=== PATIENT | female | born 1960 | race Caucasian/White ===

== ENCOUNTER → 2018-03-24 08:26 | Outpatient (CLI) | payer MEDICAID, SELFPAY ==
--- NOTE | 2018-03-24 08:32 | MM_ITS ---
MM Dig screening mamm BI w/CAD ORDERING PHYSICIAN : Kristofer Burleson PATIENT AGE: 57 years GENDER: Female COMPARISON: December 2014, September 2013 bilateral mammogram. Also Left mammogram study from 2014 also utilized INDICATION: ITS.REASON: SCREENING no hormones no new complaints noncontributory family history. TECHNIQUE: Standard CC and MLO images were obtained. R2 CAD reviewed. FINDINGS: Moderate density breast. Scattered moderate fibroglandular elements bilaterally. . No suspicious findings. No new mass or suspicious calcifications. RIGHT BREAST:. Scattered benign spherical calcifications. Mild asymmetric fibroglandular elements appear stable since 2014 with follow-up one year adequate. LEFT BREAST:No significant new findings. Areas of benign spherical calcifications at most notable central left breast again noted. IMPRESSION: Stable bilateral mammogram. Note uterus is significant concern Follow-up in one year recommended. BI-RADS Category: 2 Benign Finding(s) RECOMMENDED FOLLOW-UP: 1YR 1 YEAR FOLLOW-UP (A letter has been sent to the patient regarding results of the study.)
== END ==
PROVIDERS: Family Provider Internal Medicine; PCP Internal Medicine; Visit Provider Internal Medicine
DX: Z12.31 Encounter for screening mammogram for malignant neoplasm of breast (principal)
CPT/HCPCS: 77067

== ENCOUNTER → 2018-04-01 10:11 | Outpatient (REF) | payer MEDICAID, SELFPAY ==
[2018-04-01 10:20] LABS: Basophils % 0.5 % (0.1-2.0); Eosinophils # 0.2 K/mm3 (0.0-0.4); Eosinophils % 3.3 % (0.1-12.0); Hematocrit 42.3 % (37.0-47.0); Hemoglobin 14.4 g/dL (12.2-16.2); Lymphocytes % 31.5 K/mm3 (10-50); Mean Corpuscular HGB Conc 34.1 g/dL (31.8-35.4); Mean Corpuscular Hemoglobin 29.3 pg (27.0-31.2); Mean Corpuscular Volume 85.8 fl (81-99); Mean Platelet Volume 7.1 fl (7.4-10.4); Monocytes # 0.5 K/mm3 (0.1-1.0); Monocytes % 7.6 % (1.7-9.3); Neutrophils # 3.6 K/mm3 (1.8-7.8); Platelet Count 272 K/mm3 (142-424); Red Blood Count 4.94 M/mm3 (4.20-5.40); Red Cell Distribution Width 13.5 % (11.5-17.5); White Blood Count 6.4 K/mm3 (4.8-10.8)
[2018-04-01 10:33] LABS: Anion Gap 9.9 mEq/L (5-15); Blood Urea Nitrogen 21 mg/dL (7-18); Calcium 9.6 mg/dL (8.5-10.1); Carbon Dioxide 32 mmol/L (21.0-32.0); Chloride 102 mmol/L (98-107); Creatinine,Serum 0.97 mg/dL (0.55-1.02); Estimated Glomerular Filt Rate 59 ml/min (>60); GFR (African American) 72 ML/MIN (>60); Glucose 102 mg/dL (74-106); Potassium 3.9 mmoL/L (3.5-5.1); Sodium 140 mmol/L (136-145)
== END ==
LOC: LAB 10:11
PROVIDERS: Visit Provider Internal Medicine
DX: K57.32 Diverticulitis of large intestine without perforation or abscess without bleeding (principal)
CPT/HCPCS: 80048; 85025

== ENCOUNTER → 2018-04-26 10:58 | Outpatient (CLI) | payer MEDICAID, SELFPAY ==
[2018-04-26 13:39] LABS: Blood Urea Nitrogen 13 mg/dL (7-18); Creatinine,Serum 0.84 mg/dL (0.55-1.02); Estimated Glomerular Filt Rate 70 ml/min (>60); GFR (African American) 85 ML/MIN (>60)
== END ==
PROVIDERS: PCP Internal Medicine; Visit Provider Internal Medicine
DX: K57.90 Diverticulosis of intestine, part unspecified, without perforation or abscess without bleeding (principal)
CPT/HCPCS: 36415; 82565; 84520

== ENCOUNTER → 2018-04-27 08:47 | Outpatient (CLI) | payer MEDICAID, SELFPAY ==
--- NOTE | 2018-04-27 08:50 | CT_ITS ---
CT abdomen pelvis w con CLINICAL INDICATION: Abdominal pain, diverticulitis ITS.REASON: PERSISTENT DIVERTICULITIS ORDERING PHYSICIAN: Kristofer Burleson PATIENT AGE: 57 years COMPARISON: None TECHNIQUE: Axial images obtained with sagittal and coronal reformats. All CT scans at the facility use one or more dose reduction, viz: automated exposure control, ma/kV adjustment per patient size (including targeted exams where dose is matched to indication, i.e. head), or iterative reconstruction technique. PROCEDURE: Oral Contrast: Redicat IV Contrast: 75 mL's of Isovue-370 . FINDINGS: The lung bases are clear. There is mild hepatic steatosis. No focal liver lesion. The spleen, adrenal glands, pancreas, and kidneys have an unremarkable appearance. No obvious renal or ureteral calculi. There is a duodenal diverticulum projecting medially at the region of the pancreatic head. No intestinal obstruction or free air evident. Given history of prior appendectomy. There is diverticulosis of the descending and sigmoid colon. No evidence of diverticulitis. No abscess or contained perforation. Prior hysterectomy with multiple pelvic phleboliths noted. No pelvic mass or abnormal fluid collection or focal inflammatory change in the pelvis. There are degenerative changes in the lumbar spine with a disc osteophyte complex at L4-L5. IMPRESSION: 1. No acute abdominal or pelvic findings. 2. Diverticulosis of the descending and sigmoid colon. No evidence of diverticulitis
--- NOTE | 2018-04-27 09:36 | HMH.ITSHM ---
PRAVASTATIN,NAPROXEN,RANITINDINE LOSARTIN ASPIRINMOXIFLOXACEIN
== END ==
PROVIDERS: Family Provider Internal Medicine; PCP Internal Medicine; Visit Provider Internal Medicine
DX: K57.90 Diverticulosis of intestine, part unspecified, without perforation or abscess without bleeding (principal)
CPT/HCPCS: 74177; Q9967

== ENCOUNTER → 2019-03-10 10:31 | Outpatient (CLI) | payer MEDICAID, SELFPAY ==
--- NOTE | 2019-03-10 10:38 | XR_ITS ---
EXAM: XR cervical spine 5V HISTORY: Neck pain, arm numbness on the right ITS.REASON: CERVICALGIA,RT ARM PAIN,NUMBNESS ORDERING PHYSICIAN: Kristofer Burleson PATIENT AGE: 58 years COMPARISON: None FINDINGS: Normal alignment. No fracture or dislocation. There is mild degenerative disc disease at C5-C6 and C6-C7. No lytic or blastic change. No evidence of cervical rib. IMPRESSION: Degenerative disc disease C5-C6 and C6-C7
== END ==
PROVIDERS: PCP Internal Medicine; Visit Provider Internal Medicine
DX: M54.2 Cervicalgia (principal); M79.601 Pain in right arm; R20.0 Anesthesia of skin
CPT/HCPCS: 72050

== ENCOUNTER → 2019-06-19 09:53 | Outpatient (CLI) | payer OTHER, SELFPAY ==
--- NOTE | 2019-06-19 10:02 | XR_ITS ---
PROCEDURE: XR SHOULDER RT MIN 2V CLINICAL INDICATION: RT SHOULDER PAIN AND STIFFNESS COMPARISON: No exams were available for comparison FINDINGS: No fracture, dislocation, lytic change, or blastic change evident. No significant degenerative change IMPRESSION: No acute findings. Dictated by: Lev Richard MD 06/19/2019 10:48 Electronically signed by Lev Richard MD in [place] 06/19/2019 10:48
== END ==
PROVIDERS: PCP Internal Medicine; Visit Provider Internal Medicine
DX: M25.511 Pain in right shoulder (principal); M25.611 Stiffness of right shoulder, not elsewhere classified
CPT/HCPCS: 73030

== ENCOUNTER → 2021-08-25 12:39 | Outpatient (CLI) | payer OTHER, SELFPAY ==
[2021-08-25 13:55] LABS: Chloride 101 mmol/L (98-107); Potassium 3.9 mmoL/L (3.5-5.1); Sodium 141 mmol/L (136-145)
[2021-08-25 13:57] LABS: Alanine Aminotransferase 26 U/L (12-78); Aspartate Amino Transferase 31 U/L (14-36); Blood Urea Nitrogen 18 mg/dl (7-17); Estimated Glomerular Filt Rate 86 ml/min (>60); GFR (African American) 104 ML/MIN (>60)
[2021-08-25 13:58] LABS: Albumin Level 4.7 g/dl (3.5-5.0); Albumin/Globulin Ratio 1.5 (1.1-1.8); Alkaline Phosphatase 84 U/L (38-126); Anion Gap 13.9 mEq/L (5-15); Bilirubin,Total 0.5 mg/dl (0.2-1.3); Calcium 9.4 mg/dl (8.4-10.2); Carbon Dioxide 30 mmol/L (22.0-30.0); Chol/HDL Ratio 4.1 (1-3.5); Cholesterol 195 mg/dl (140-200); Globulin 3.2 g/dL (1.3-3.2); Glucose 96 mg/dl (74-100); HDL Cholesterol 47 mg/dl (40-60); Total Protein,Serum 7.9 g/dl (6.3-8.2); Triglycerides 120 mg/dl (30-150); VLDL Cholesterol 24 mg/dL (0-40)
[2021-08-25 14:09] LABS: Direct LDL Cholesterol 128.65 mg/dL (100-129)
== END ==
PROVIDERS: Visit Provider Internal Medicine
DX: I10 Essential (primary) hypertension (principal); E78.5 Hyperlipidemia, unspecified; M17.0 Bilateral primary osteoarthritis of knee
CPT/HCPCS: 80053; 80061

== ENCOUNTER → 2021-11-18 14:50 | Outpatient (CLI) | payer OTHER, SELFPAY ==
--- NOTE | 2021-11-18 15:11 | XR_ITS ---
FINAL REPORT CLINICAL HISTORY: RLQ PAIN,RT FLANK PAIN, stat study per Dr Burleson. COMPARISON: March 24, 2017 FINDINGS: Chest: Single view was obtained. The heart and mediastinum are within normal limits. There is mild bibasilar atelectasis. There is no pneumothorax. Abdomen: 2 views were obtained. There is a nonspecific bowel gas pattern. There are scattered small fluid levels. There is no free air. Multiple phleboliths are noted in the pelvis. IMPRESSION: Mild bibasilar atelectasis. Nonspecific bowel gas pattern with scattered small fluid levels. Reviewed, Interpreted and Dictated by Andrae Shay III, MD Transcribed by Corinne Garcia Authenticated by Andrae Shay III, MD on 11/18/2021 04:19:[address] [facility]
[2021-11-18 15:16] LABS: Basophils # 0.1 K/mm3 (0-0.2); Eosinophils % 0.4 % (0.1-12.0); Hematocrit 42.9 % (37.0-47.0); Hemoglobin 14.3 g/dL (12.2-16.2); Lymphocytes # 0.5 K/mm3 (0.7-4.5); Lymphocytes % 5.4 % (10-50); Mean Corpuscular HGB Conc 33.3 g/dL (31.8-35.4); Mean Corpuscular Hemoglobin 30.5 pg (27.0-31.2); Mean Corpuscular Volume 91.5 fl (81-99); Monocytes # 0.4 K/mm3 (0.1-1.0); Monocytes % 3.9 % (1.7-9.3); Neutrophils # 8.7 K/mm3 (1.8-7.8); Neutrophils % 89.2 % (37.0-80.0); Platelet Count 311 K/mm3 (142-424); Red Blood Count 4.68 M/mm3 (4.20-5.40); Red Cell Distribution Width 13.8 % (11.5-17.5); White Blood Count 9.7 K/mm3 (4.8-10.8)
[2021-11-18 15:18] LABS: MANUAL DIFFERENTIAL MANUAL DIFFERENTIAL (MANUAL DIFF)
[2021-11-18 15:28] LABS: Alanine Aminotransferase 25 U/L (12-78); Albumin Level 4.5 g/dl (3.5-5.0); Albumin/Globulin Ratio 1.4 (1.1-1.8); Alkaline Phosphatase 90 U/L (38-126); Anion Gap 11.8 mEq/L (5-15); Aspartate Amino Transferase 27 U/L (14-36); Bilirubin,Total 0.6 mg/dl (0.2-1.3); Blood Urea Nitrogen 17 mg/dl (7-17); Calcium 8.8 mg/dl (8.4-10.2); Carbon Dioxide 27 mmol/L (22.0-30.0); Chloride 104 mmol/L (98-107); Estimated Glomerular Filt Rate 86 ml/min (>60); GFR (African American) 104 ML/MIN (>60); Globulin 3.2 g/dL (1.3-3.2); Glucose 127 mg/dl (74-100); Potassium 3.8 mmoL/L (3.5-5.1); Sodium 139 mmol/L (136-145); Total Protein,Serum 7.7 g/dl (6.3-8.2)
[2021-11-18 15:48] LABS: Lymphocytes % 8 % (10-50); Monocytes % 3 % (2-9); Neutrophils % 88 % (42-76); Platelet Estimate Normal; RBC Morphology Normal; Total Cells Counted 100
== END ==
PROVIDERS: PCP Internal Medicine; Visit Provider Internal Medicine
DX: R10.9 Unspecified abdominal pain (principal); R10.31 Right lower quadrant pain; K52.9 Noninfective gastroenteritis and colitis, unspecified
CPT/HCPCS: 36415; 74021; 80053; 85007; 85025

== ENCOUNTER → 2021-11-21 11:51 | Outpatient (CLI) | payer OTHER, SELFPAY ==
--- NOTE | 2021-11-21 11:58 | CT_ITS ---
FINAL REPORT CLINICAL HISTORY: ABD PAIN, BACK PAIN, fever COMPARISON: April 27, 2018 FINDINGS: CT ABDOMEN & PELVIS W/O CONTRAST Axial CT images of the abdomen and pelvis were obtained without intravenous contrast. Coronal reformatted images were also obtained.This study was performed with techniques to keep radiation doses as low as reasonably achievable (ALARA). Individualized dose reduction techniques using automated exposure control or adjustment of mA and/or kV according to the patient's size were employed. Abdomen: There is mild scarring in the lung bases. There is no evidence of renal stone or hydronephrosis. The gallbladder is present. The liver is mildly fatty infiltrated. The spleen and pancreas have an unremarkable, unenhanced appearance. No mass or adenopathy is seen. No inflammatory process is identified. There are mild vascular calcifications. Pelvis: Images of the pelvis reveal no evidence of ureteral dilation or ureteral stone. The appendix is not seen. There is stranding adjacent to the distal sigmoid colon which is consistent with acute diverticulitis. There is a small amount of free fluid which is likely reactive. There are postoperative changes from hysterectomy. IMPRESSION: Acute diverticulitis. Reviewed, Interpreted and Dictated by Andrae Shay III, MD Transcribed by Alma Mo Authenticated by Andrae Shay III, MD on 11/21/2021 12:49:[address] [facility]
== END ==
PROVIDERS: PCP Internal Medicine; Visit Provider Internal Medicine
DX: R50.9 Fever, unspecified (principal); R10.9 Unspecified abdominal pain; M54.50 Low back pain, unspecified
CPT/HCPCS: 74176

== ENCOUNTER → 2022-01-05 10:44 | Outpatient (CLI) | payer OTHER, SELFPAY | PROVIDERS: PCP Internal Medicine; Visit Provider Internal Medicine | DX: Z20.822 Contact with and (suspected) exposure to COVID-19 (principal) | CPT/HCPCS: C9803; U0003; U0005 ==

== ENCOUNTER → 2022-03-27 11:06 | Outpatient (CLI) | payer OTHER, SELFPAY ==
--- NOTE | 2022-03-27 11:18 | XR_ITS ---
FINAL REPORT CLINICAL HISTORY: LLQ PAIN,NAUSEA FINDINGS: Chest: A single view of the chest demonstrates no acute cardiopulmonary process. Abdomen: Flat and upright views of the abdomen demonstrate a nonobstructive gas pattern. There is no free air. There are calcified phleboliths in the floor of the pelvis. IMPRESSION: No acute process. Reviewed, Interpreted and Dictated by Mikael Piedra MD Transcribed by Deya Soriano Authenticated and . [facility]
[2022-03-27 11:34] LABS: Basophils # 0.1 K/mm3 (0-0.2); Eosinophils # 0.1 K/mm3 (0.0-0.4); Eosinophils % 1.6 % (0.1-12.0); Hematocrit 46.2 % (37.0-47.0); Hemoglobin 14.9 g/dL (12.2-16.2); Lymphocytes # 2.3 K/mm3 (0.7-4.5); Lymphocytes % 25.7 % (10-50); Mean Corpuscular HGB Conc 32.3 g/dL (31.8-35.4); Mean Corpuscular Hemoglobin 30.3 pg (27.0-31.2); Mean Corpuscular Volume 93.7 fl (81-99); Mean Platelet Volume 7.8 fl (7.4-10.4); Monocytes # 0.5 K/mm3 (0.1-1.0); Neutrophils # 5.9 K/mm3 (1.8-7.8); Neutrophils % 65.7 % (37.0-80.0); Platelet Count 306 K/mm3 (142-424); Red Blood Count 4.93 M/mm3 (4.20-5.40); Red Cell Distribution Width 14.1 % (11.5-17.5)
== END ==
PROVIDERS: PCP Internal Medicine; Visit Provider Internal Medicine
DX: R10.32 Left lower quadrant pain (principal); R11.0 Nausea
CPT/HCPCS: 36415; 74021; 85025

== ENCOUNTER 2022-09-14 18:38 | Emergency (ER) | payer OTHER, SELFPAY ==
[2022-09-14 18:40] VITALS: BP 219/96; PULSE 89; RESP 18; TEMP 36.5; O2SAT 96; BMI 35.6
--- NOTE | 2022-09-14 18:53 | CT_ITS ---
PROCEDURE INFORMATION: Exam: CT Head Without Contrast Exam date and time: 09/14/2022 7:18 PM Age: 61 years old Clinical indication: Injury or trauma; Fall; Blunt trauma (contusions or hematomas); Consciousness not specified; Additional info: Fall, pain TECHNIQUE: Imaging protocol: Computed tomography of the head without contrast. Radiation optimization: All CT scans at this facility use at least one of these dose optimization techniques: automated exposure control; mA and/or kV adjustment per patient size (includes targeted exams where dose is matched to clinical indication); or iterative reconstruction. Other protocol: This patient has received 4 known CTs and 0 known cardiac nuclear medicine studies in the 12 months prior to the current study. COMPARISON: CR XR CERVICAL SPINE 5V 03/10/2019 10:39 AM FINDINGS: Brain: No evidence for acute transcortical infarct. No mass effect or midline shift. No extra-axial collection. No acute intracranial hemorrhage. Basal cisterns are patent. Cerebral ventricles: No ventriculomegaly. Paranasal sinuses: Visualized sinuses are unremarkable. No fluid levels. Mastoid air cells: Visualized mastoid air cells are well aerated. Bones/joints: Unremarkable. No acute fracture. Soft tissues: Unremarkable. IMPRESSION: No evidence for acute transcortical infarct, acute intracranial hemorrhage, or mass effect.
--- NOTE | 2022-09-14 18:53 | CT_ITS ---
PROCEDURE INFORMATION: Exam: CT Lumbar Spine Without Contrast Exam date and time: 09/14/2022 7:29 PM Age: 61 years old Clinical indication: Injury or trauma; Fall; Blunt trauma (contusions or hematomas); Additional info: Fall, pain TECHNIQUE: Imaging protocol: Computed tomography of the lumbar spine without contrast. Total images: 322 Radiation optimization: All CT scans at this facility use at least one of these dose optimization techniques: automated exposure control; mA and/or kV adjustment per patient size (includes targeted exams where dose is matched to clinical indication); or iterative reconstruction. Other protocol: This patient has received 4 known CTs and 0 known cardiac nuclear medicine studies in the 12 months prior to the current study. COMPARISON: CT THORACIC SPINE WO CON 09/14/2022 7:26 PM FINDINGS: Bones/joints: Five non rib-bearing lumbar vertebral segments. Lumbar vertebral body height and alignment is maintained. No acute fracture or traumatic subluxation. The posterior elements are intact. The facet joints are appropriately aligned. Moderate degenerate facet arthropathy greatest at L4-L5. Severe degenerative disc disease L4-L5 with posterior projecting disc osteophyte complex. Gjid-[id number] degenerative disc disease at the remainder of the lumbar levels next greatest at L2-L3 and L3-L4. Mild disc bulging L2-L3, L3-L4 and L5-S1. No large disc herniation. Mild acquired spinal canal stenosis L2-L3, L3-L4 and L5-S1 secondary to combined disc bulge and ligamentous thickening. Moderate acquired spinal canal stenosis L4-L5. Bilateral neural foraminal encroachment L4-L5 and to lesser extent L5-S1. Degenerative changes bilateral SI joints. Included sacrum and pelvis is unremarkable. Kidneys and ureters: No hydronephrosis or nephrolithiasis. Stomach and bowel: Duodenal diverticulum. Sigmoid diverticulosis. Reproductive: Status post hysterectomy. Vasculature: Mildly atherosclerotic abdominal aorta without aneurysm. Numerous pelvic phleboliths. Lymph nodes: No retroperitoneal mass, lymphadenopathy, or hematoma. Soft tissues: No paraspinal soft tissue swelling or mass. Posterior paraspinal soft tissues are unremarkable. IMPRESSION: 1. No acute lumbar spine fracture or traumatic subluxation. 2. Multilevel degenerative changes greatest at L4-L5 as described in detail. 3. Multiple additional chronic and incidental findings.
--- NOTE | 2022-09-14 18:53 | CT_ITS ---
PROCEDURE INFORMATION: Exam: CT Thoracic Spine Without Contrast Exam date and time: 09/14/2022 7:26 PM Age: 61 years old Clinical indication: Injury or trauma; Fall; Blunt trauma (contusions or hematomas); Additional info: Fall, pain TECHNIQUE: Imaging protocol: Computed tomography of the thoracic spine without contrast. Total images: 309 Radiation optimization: All CT scans at this facility use at least one of these dose optimization techniques: automated exposure control; mA and/or kV adjustment per patient size (includes targeted exams where dose is matched to clinical indication); or iterative reconstruction. Other protocol: This patient has received 4 known CTs and 0 known cardiac nuclear medicine studies in the 12 months prior to the current study. COMPARISON: CT CERVICAL SPINE WO CON 09/14/2022 7:21 PM FINDINGS: Bones/joints: Thoracic vertebral body height and alignment is preserved. No acute fracture or traumatic subluxation. Moderate degenerative changes greatest in the mid lower thoracic levels with prominent anterolateral bridging osteophyte formation at multiple consecutive levels. Facet joints are appropriately aligned with moderate degenerate facet arthropathy. Posterior elements appear intact. Spinous processes are intact. No lytic or blastic bone lesions. Cervicothoracic junction is preserved. Included posterior ribs are intact. Mild degenerative changes costovertebral margins bilaterally. Spinal epidural space: No large disc herniation, spinal canal stenosis, or secondary findings of epidural hematoma. Soft tissues: No paraspinal soft tissue mass or swelling. Posterior paraspinal soft tissues are unremarkable. Vasculature: Atherosclerotic thoracic aorta. Lungs: No airspace consolidation or acute infiltrate visualized. Scattered bilateral granuloma. Right lower lobe paraspinal juxtapleural pulmonary interstitial fibrosis. Coronary arteries: Coronary artery calcifications. Thyroid: Left thyroid lobe calcification. Other findings: Tiny hiatal hernia. IMPRESSION: 1. No acute thoracic fracture or traumatic subluxation. 2. Moderate multilevel degenerative disc disease and facet joint spondylosis. 3. Additional chronic and incidental findings.
--- NOTE | 2022-09-14 18:53 | XR_ITS ---
PROCEDURE INFORMATION: Exam: XR Pelvis Exam date and time: 09/14/2022 7:04 PM Age: 61 years old Clinical indication: Injury or trauma; Fall; Blunt trauma (contusions or hematomas); Bilateral; Pelvic region TECHNIQUE: Imaging protocol: Radiologic exam of the pelvis. Views: 1 or 2 view. Total images: 1 COMPARISON: CT ABDOMEN PELVIS WO CON 11/21/2021 11:59 AM FINDINGS: Bones/joints: Symmetric mild degenerative changes bilateral hips and SI joints. No acute fracture or joint dislocation. Pelvic ring is maintained. Mild degenerative change pubic symphysis. Moderate degenerative changes lower lumbar spine. Soft tissues: Unremarkable soft tissues. Gastrointestinal tract: Nonobstructive bowel gas pattern. Vasculature: Numerous pelvic phleboliths. IMPRESSION: No acute pelvic or hip fracture.
--- NOTE | 2022-09-14 18:53 | XR_ITS ---
PROCEDURE INFORMATION: Exam: XR Chest Exam date and time: 09/14/2022 6:58 PM Age: 61 years old Clinical indication: Injury or trauma; Fall; Blunt trauma (contusions or hematomas) TECHNIQUE: Imaging protocol: Radiologic exam of the chest. Views: 2 views. Total images: 2 COMPARISON: CR CXR CHEST(2 VIEWS-NOT PORTABLE) 03/24/2017 3:35 PM FINDINGS: Lungs: Calcified right upper lobe granuloma. No airspace consolidation, infiltrate, vascular congestion, or pulmonary edema. Pleural spaces: Unremarkable. No pleural effusion. No pneumothorax. Heart/Mediastinum: Unremarkable. No cardiomegaly. No mediastinal widening or hilar enlargement. Vasculature: Minor tortuosity thoracic aorta. Diaphragm: Mild eventration medial right hemidiaphragm. Bones/joints: Moderate degenerative changes thoracic spine. IMPRESSION: No radiographically acute cardiopulmonary process.
--- NOTE | 2022-09-14 18:53 | CT_ITS ---
PROCEDURE INFORMATION: Exam: CT Cervical Spine Without Contrast Exam date and time: 09/14/2022 7:21 PM Age: 61 years old Clinical indication: Injury or trauma; Fall; Blunt trauma; Additional info: Fall, pain TECHNIQUE: Imaging protocol: Computed tomography of the cervical spine without contrast. Radiation optimization: All CT scans at this facility use at least one of these dose optimization techniques: automated exposure control; mA and/or kV adjustment per patient size (includes targeted exams where dose is matched to clinical indication); or iterative reconstruction. Other protocol: This patient has received 4 known CTs and 0 known cardiac nuclear medicine studies in the 12 months prior to the current study. COMPARISON: CR XR CERVICAL SPINE 5V 03/10/2019 10:39 AM FINDINGS: Bones/joints: No acute fracture or traumatic subluxation. No spondylolisthesis. The atlantooccipital and atlantoaxial articulations are intact. Occipital condyles are intact. Facet joint alignments are maintained. Age-related degenerative disc disease. Multilevel degenerative changes of the cervical spine. Prevertebral and retropharyngeal spaces: No prevertebral soft tissue swelling. Lungs: Lung apices are normal. Soft tissues: Unremarkable. IMPRESSION: No acute fracture or traumatic subluxation.
--- NOTE | 2022-09-14 18:55 | XR_ITS ---
PROCEDURE INFORMATION: Exam: XR Right Humerus Exam date and time: 09/14/2022 7:02 PM Age: 61 years old Clinical indication: Injury or trauma; Fall; Blunt trauma (contusions or hematomas); Arm, upper; Right; Additional info: Fall, pain TECHNIQUE: Imaging protocol: Radiologic exam of the Right humerus. Views: 2 or more views. Total images: 2 COMPARISON: CR XR SHOULDER RT MIN 2V 09/14/2022 7:00 PM FINDINGS: Bones/joints: No acute fracture or joint dislocation. Joint spaces are age-appropriate. No concerning bone lesions or calcifications. Soft tissues: Unremarkable soft tissues. IMPRESSION: Negative right humerus.
--- NOTE | 2022-09-14 18:55 | XR_ITS ---
PROCEDURE INFORMATION: Exam: XR Right Shoulder Exam date and time: 09/14/2022 7:00 PM Age: 61 years old Clinical indication: Injury or trauma; Fall; Blunt trauma (contusions or hematomas); Shoulder; Right; Additional info: Fall, pain TECHNIQUE: Imaging protocol: Radiologic exam of the Right shoulder. Views: 2 or more views. Total images: 3 COMPARISON: CR XR SHOULDER RT MIN 2V 06/19/2019 10:05 AM FINDINGS: Bones/joints: No acute fracture, joint dislocation, or AC joint separation. The subacromial distance is maintained. Glenohumeral joint appears appropriate for age. Mild degenerative change AC joint. No concerning bone lesions. Lungs: Right upper lobe calcified granuloma. Soft tissues: Unremarkable soft tissues. IMPRESSION: Negative right shoulder.
--- NOTE | 2022-09-14 18:55 | XR_ITS ---
PROCEDURE INFORMATION: Exam: XR Right Elbow Exam date and time: 09/14/2022 6:55 PM Age: 61 years old Clinical indication: Injury or trauma; Fall; Blunt trauma (contusions or hematomas); Elbow; Right; Additional info: Fall, pain TECHNIQUE: Imaging protocol: Radiologic exam of the Right elbow. Views: 3 or more views. Total images: 3 COMPARISON: CR XR FOREARM RT 2V 09/14/2022 6:54 PM FINDINGS: Bones/joints: No acute fracture or joint dislocation. Joint spaces are appropriate for age. Minor spurring of the coronoid process. Enthesophytes of the medial and lateral humeral epicondyles and olecranon process. No concerning bone lesions or pathologic calcifications. No joint effusion. Soft tissues: Unremarkable soft tissues. IMPRESSION: Negative right elbow.
--- NOTE | 2022-09-14 18:55 | XR_ITS ---
PROCEDURE INFORMATION: Exam: XR Right Forearm Exam date and time: 09/14/2022 6:54 PM Age: 61 years old Clinical indication: Injury or trauma; Fall; Blunt trauma (contusions or hematomas); Arm, lower; Right; Additional info: Fall, pain TECHNIQUE: Imaging protocol: Radiologic exam of the Right forearm. Views: 2 views. Total images: 2 COMPARISON: CR XR WRIST RT MIN 3V 09/14/2022 6:52 PM FINDINGS: Bones/joints: No acute fracture or joint dislocation. Mild narrowing radiocarpal joint. Tiny enthesophyte at the olecranon process. No concerning bone lesions or pathologic calcifications. Soft tissues: Mild soft tissue swelling mid forearm.. IMPRESSION: Negative right forearm.
--- NOTE | 2022-09-14 18:55 | XR_ITS ---
PROCEDURE INFORMATION: Exam: XR Right Wrist Exam date and time: 09/14/2022 6:52 PM Age: 61 years old Clinical indication: Injury or trauma; Fall; Blunt trauma (contusions or hematomas); Wrist; Right; Additional info: Fall, pain TECHNIQUE: Imaging protocol: Radiologic exam of the Right wrist. Views: 3 or more views. Total images: 3 COMPARISON: No relevant prior studies available. FINDINGS: Bones/joints: No acute fracture or joint dislocation. Carpal alignment is well maintained. Mild narrowing radiocarpal joint and 1st carpometacarpal joint spaces. No concerning bone lesions or pathologic calcifications. Distal radius ulna are intact. Soft tissues: Mild soft tissue swelling. IMPRESSION: Negative right wrist.
--- NOTE | 2022-09-14 18:59 | ECG_ITS ---
APPROVED REPORT Exam: Resting ECG HR:81 bpm ECG Measurements Heart Rate 81 AXES CA 148 P 26 QRSd 93 QRS -14 QT 357 T 0 QTc 394 Conclusion SINUS RHYTHM MINIMAL VOLTAGE CRITERIA FOR LVH, CONSIDER NORMAL VARIANT [MEETS CRITERIA IN ONE OF: R(aVL), S(V1), R(V5), R(V5/V6)+S(V1)] NONSPECIFIC T-WAVE ABNORMALITY BORDERLINE ECG UNCONFIRMED REPORT Electronically signed by : Misha Vazquez MD 09/15/2022 21:18:03
--- NOTE | 2022-09-14 18:59 | PC.NURSE ---
PT TRANSPORTED TO RADIOLOGY.
--- NOTE | 2022-09-14 19:01 | PC.NURSE ---
pt to CT
--- NOTE | 2022-09-14 19:09 | PC.NURSE ---
shift change report given to jorge fang and charlyrn
--- NOTE | 2022-09-14 19:24 | HMH.EDGENADL ---
Discharge Plan Disposition Patient Disposition: Home, Self-Care Condition: Good Prescriptions Prescriptions: No Action aspirin 81 mg Tablet 81 mg PO DAILY Referrals Follow up/Referrals: Kristofer Burleson MD [Primary Care Provider] - See instructions Activity Restrictions/Add. Instructions Additional Instructions/Restrictions: You were evaluated in the emergency department today. At this time, we feel you likely have a concussion. Take Tylenol and ibuprofen as you need to for pain. Your blood pressure readings here were high, so please continue checking your blood pressure at home. Call your primary care provider in the morning and let them know that you were evaluated here. They may want to make adjustments to your blood pressure medications. Return to the emergency department for any new or worsening symptoms. Clinical Impressions Clinical Impression: Fall Qualifiers: Encounter type: initial encounter Qualified Code(s): W19.XXXA - Unspecified fall, initial encounter Closed head injury Qualifiers: Encounter type: initial encounter Qualified Code(s): S09.90XA - Unspecified injury of head, initial encounter Abrasion forearm Qualifiers: Encounter type: initial encounter Laterality: right Qualified Code(s): S50.811A - Abrasion of right forearm, initial encounter Hypertension Qualifiers: Hypertension type: unspecified Qualified Code(s): I10 - Essential (primary) hypertension Instructions Patient Instructions: DI for Concussion, DI for High Blood Pressure, How to Prevent Falls Discharge ED Provider: Rosanne Jaramillo General Adult HPI General Chief complaint: Fall Stated complaint: ao 09/14@1800@home fell neck head,R arm Time Seen by Provider: 09/14/22 18:42 Mode of Arrival: Ambulatory Source of Information: Patient Limitations: No Limitations Description of Symptoms (Recalled from ER Triage Doc. by RN): pt reports a fall while walking into her barn. Pt reports unsure how sure she fell, unsure if she had a loss of consciousness. Pt reports has been dizzy today and her bp has been elevated. Abrasion to R forearm. Pt c/o R shoulder pain, nasim sides of her neck pain and pain in the back of her head. History of Present Illness HPI narrative: This patient is a 61-year-old female who reports that she has a history of hypertension for which she takes losartan 100 mg at home presented to the emergency department after a mechanical fall that happened just prior to arrival. She reports that she was stepping down into her barn, which is 2 steps, when she believes she lost her balance and fell onto her right side. She did hit her head and lose consciousness, so she does not remember all of the event. She does not take any blood thinners, but she notes that she does take a baby aspirin. She states that she has felt lightheaded all day and her blood pressures have been high for a while now. She is not sure how high they have been at home. She complains of head pain, neck pain, right shoulder pain, and right forearm pain. She does have a skin tear to her right forearm. She denies any other concerns at this time. She denies any vision changes, numbness, tingling, or other issues. She denies any chest pain, abdominal pain, pelvic/hip pain, lower extremity pain, or other concerns Related Data Home Medications Medication Instructions Recorded Confirmed aspirin 81 mg tablet 81 mg PO DAILY heart 09/14/22 09/14/22 Allergies Allergy/AdvReac Type Severity Reaction Status Date / Time No Known Allergies Allergy Unverified 07/20/17 14:40 [facility] Disclaimer: The information contained in this section may have been updated after the patient was seen, as this information can be updated by other users. Social History Smoking Status: Never smoker alcohol intake: never current occupational status: employed Travel in the last 8 weeks: None ROS Obtained: Yes
[2022-09-14 19:43] VITALS: BP 172/90; PULSE 83; O2SAT 96
--- NOTE | 2022-09-14 19:43 | PC.NURSE ---
manual BP 172/90
[2022-09-14 19:52] LABS: Basophils # 0.1 K/mm3 (0-0.2); Basophils % 1.5 % (0.1-2.0); Eosinophils # 0.2 K/mm3 (0.0-0.4); Eosinophils % 2.1 % (0.1-12.0); Hematocrit 43.5 % (37.0-47.0); Hemoglobin 14.8 g/dL (12.2-16.2); Lymphocytes # 2.8 K/mm3 (0.7-4.5); Mean Corpuscular HGB Conc 34.1 g/dL (31.8-35.4); Mean Corpuscular Hemoglobin 29.7 pg (27.0-31.2); Mean Corpuscular Volume 87.3 fl (81-99); Mean Platelet Volume 7.9 fl (7.4-10.4); Monocytes # 0.5 K/mm3 (0.1-1.0); Monocytes % 6.2 % (1.7-9.3); Neutrophils % 53.2 % (37.0-80.0); Platelet Count 298 K/mm3 (142-424); Red Blood Count 4.99 M/mm3 (4.20-5.40); Red Cell Distribution Width 13.6 % (11.5-17.5); White Blood Count 7.6 K/mm3 (4.8-10.8)
[2022-09-14 19:54] LABS: Chloride 107 mmol/L (98-107)
[2022-09-14 19:55] LABS: Potassium 3.3 mmoL/L (3.5-5.1); Sodium 143 mmol/L (136-145)
[2022-09-14 19:57] LABS: Alanine Aminotransferase 34 U/L (12-78); Aspartate Amino Transferase 33 U/L (14-36); Blood Urea Nitrogen 17 mg/dl (7-17); Creatinine Clearance Estimated 101 mL/min (50-200); Estimated Glomerular Filt Rate 73 ml/min (>60); GFR (African American) 89 ML/MIN (>60)
[2022-09-14 19:58] LABS: Albumin Level 4.7 g/dl (3.5-5.0); Albumin/Globulin Ratio 1.4 (1.1-1.8); Alkaline Phosphatase 92 U/L (38-126); Anion Gap 10.3 mEq/L (5-15); Bilirubin,Total 0.3 mg/dl (0.2-1.3); Calcium 9.2 mg/dl (8.4-10.2); Carbon Dioxide 29 mmol/L (22.0-30.0); Globulin 3.4 g/dL (1.3-3.2); Glucose 112 mg/dl (74-100); Total Protein,Serum 8.1 g/dl (6.3-8.2)
[2022-09-14 20:17] VITALS: BP 160/72
[2022-09-14 20:17] LABS: Troponin I < 0.01 ng/ml (0.00-0.034)
--- NOTE | 2022-09-14 20:17 | PC.NURSE ---
manual BP 160/72
[2022-09-14 20:56] VITALS: BP 185/72; PULSE 88; RESP 14; TEMP 36.7; O2SAT 97
== END 2022-09-14 21:04 | disposition home or self-care (01) ==
PROVIDERS: Emergency Provider Emergency Medicine; PCP Internal Medicine
DX: S09.90XA Unspecified injury of head, initial encounter (principal); W19.XXXA Unspecified fall, initial encounter; S50.811A Abrasion of right forearm, initial encounter; I10 Essential (primary) hypertension
CPT/HCPCS: 70450; 71046; 72125; 72128; 72131; 72170; 73030; 73060; 73080; 73090; 73110; 80053; 84484; 85025; 93005; 96361; 96374; 96375; 99285; J2405

== ENCOUNTER → 2022-09-28 07:50 | Outpatient (CLI) | payer OTHER, SELFPAY | PROVIDERS: PCP Internal Medicine; Visit Provider Internal Medicine | DX: G47.33 Obstructive sleep apnea (adult) (pediatric) (principal); R40.0 Somnolence; R51.9 Headache, unspecified; R06.83 Snoring; R53.83 Other fatigue | CPT/HCPCS: G0399 ==

== ENCOUNTER → 2022-11-18 16:01 | Outpatient (CLI) | payer OTHER, SELFPAY ==
--- NOTE | 2022-11-18 16:06 | XR_ITS ---
FINAL REPORT CLINICAL HISTORY: KNEE PAIN PARTIAL KNEE REPLACEMENT, stepped off porch wrong 3 days ago and heard a pop , medial pain and soreness COMPARISON: 03/03/2016 FINDINGS: Right knee Three views were obtained. There is no acute fracture or dislocation. There are interval postoperative changes from medial compartment arthroplasty. There is mild patellofemoral and lateral compartment degenerative change. No soft tissue abnormality is identified. IMPRESSION: Degenerative and postoperative changes as detailed above. Reviewed, Interpreted and Dictated by Andrae Shay III, MD Transcribed by Lilly Caba Authenticated and [facility]
== END ==
PROVIDERS: PCP Internal Medicine; Visit Provider Internal Medicine
DX: M25.561 Pain in right knee (principal); Z96.651 Presence of right artificial knee joint
CPT/HCPCS: 73562

== ENCOUNTER → 2023-01-04 17:56 | Outpatient (CLI) | payer OTHER, SELFPAY ==
[2023-01-04 19:08] LABS: Chloride 101 mmol/L (98-107); Potassium 3.7 mmoL/L (3.5-5.1); Sodium 140 mmol/L (136-145)
[2023-01-04 19:11] LABS: Anion Gap 15.7 mEq/L (5-15); Blood Urea Nitrogen 18 mg/dl (7-17); Carbon Dioxide 27 mmol/L (22.0-30.0); Estimated Glomerular Filt Rate 85 ml/min (>60); GFR (African American) 103 ML/MIN (>60)
[2023-01-04 19:12] LABS: Calcium 8.9 mg/dl (8.4-10.2); Glucose 141 mg/dl (74-100)
== END ==
PROVIDERS: PCP Internal Medicine; Visit Provider Internal Medicine
DX: I10 Essential (primary) hypertension (principal)
CPT/HCPCS: 80048

== ENCOUNTER 2024-03-30 15:44 | Outpatient (CLI) | payer OTHER, SELFPAY ==
--- NOTE | 2024-03-30 16:10 | CA_ITS ---
FINAL REPORT TECHNIQUE: Ultrasound images of the deep venous system were obtained from the left groin to the calf veins. CLINICAL HISTORY: Pain and swelling in LLE-rule out DVT COMPARISON: None FINDINGS: The deep venous system is normally compressible. Normal flow is identified. IMPRESSION: No evidence of left lower extremity DVT. Reviewed, Interpreted and Dictated by Mikael Piedra MD Transcribed by Neetu Ennis Authenticated and . [facility]
== END 2024-03-30 23:59 | disposition home or self-care (01) ==
LOC: RT 15:44
PROVIDERS: PCP Internal Medicine; Visit Provider Internal Medicine
DX: M79.605 Pain in left leg (principal); R22.42 Localized swelling, mass and lump, left lower limb
CPT/HCPCS: 93971

== ENCOUNTER 2024-07-01 13:04 | Emergency (ER) | payer OTHER, SELFPAY ==
--- NOTE | 2024-07-01 14:04 | EXP.UTC ---
Discharge Plan Disposition Patient Disposition: Home, Self-Care Condition: Good Prescriptions Prescriptions: New benzonatate 100 mg capsule 100 mg PO TIDP PRN (Reason: Cough) Qty: 30 0RF ondansetron 4 mg Tablet,Disintegrating 4 mg PO Q8H PRN (Reason: Nausea) Qty: 12 0RF No Action escitalopram oxalate 10 mg tablet 10 mg PO DAILY meloxicam 15 mg tablet 15 mg PO DAILY Qty: 30 2RF Rx Instructions: Take with food famotidine 20 mg tablet 20 mg PO HS Qty: 30 2RF losartan-hydrochlorothiazide 50-12.5 mg tablet 1 tab PO DAILY Qty: 30 2RF atorvastatin 20 mg tablet 20 mg PO HS Qty: 90 3RF aspirin 81 mg Tablet 81 mg PO DAILY Referrals Follow up/Referrals: Kristofer Burleson MD [Primary Care Provider] - See instructions Activity Restrictions/Add. Instructions Additional Instructions/Restrictions: Drink plenty of fluids. Take tylenol for pain or fever. Follow up with your regular doctor. GO TO THE ER FOR ANY WORSENING SYMPTOMS Clinical Impressions Clinical Impression: Acute viral syndrome, Exposure to 2019 novel coronavirus Instructions Patient Instructions: COVID-19 Print Language Print Language: Macedonian Discharge ED Provider: Mejia Mckay [facility] [place] HPI General Stated complaint: covid ex ba fever [address] Time Seen by Provider: 07/01/24 14:04 Related Data Home Medications ?Medication ?Instructions ?Recorded ?Confirmed aspirin 81 mg tablet 81 mg PO DAILY heart 09/14/22 07/01/24 escitalopram oxalate 10 mg tablet 10 mg PO DAILY 03/30/24 07/01/24 Previous Rx's ?Medication ?Instructions ?Recorded atorvastatin 20 mg tablet 20 mg PO HS #90 tabs 02/18/24 famotidine 20 mg tablet 20 mg PO HS For GI protection 03/30/24 while on NSAIDs #30 tabs meloxicam 15 mg tablet 15 mg PO DAILY #30 tabs 03/30/24 losartan 50 mg-hydrochlorothiazide 1 tab PO DAILY #30 tabs 06/06/24 12.5 mg tablet benzonatate 100 mg capsule 100 mg PO TIDP PRN Cough #30 caps 07/01/24 ondansetron 4 mg disintegrating 4 mg PO Q8H PRN Nausea #12 tabs 07/01/24 tablet Allergies Allergy/AdvReac Type Severity Reaction Status Date / Time No Known Allergies Allergy Verified 06/06/24 15:34 [facility] Disclaimer: The information contained in this section may have been updated after the patient was seen, as this information can be updated by other users. Social History Smoking Status: Never smoker alcohol intake: never current occupational status: employed ROS Obtained: Yes All systems reviewed & no additional complaints except as documented Constitutional Constitutional: Reports chills and Reports fever(s) Eyes Eyes: Denies eye discharge ENT Ears, Nose, Mouth, and Throat: Reports as per HPI Cardiovascular Cardiovascular: Denies chest pain Respiratory Respiratory: Denies chest congestion and Reports cough Gastrointestinal Gastrointestingal: Reports nausea; Denies abdominal pain, constipation, cramping, diarrhea or vomiting Musculoskeletal Musculoskeletal: Denies arthralgias Integumentary/Breasts Skin/Breast: Denies rash Neurologic Neurologic: Denies paresthesias Physical Exam General General appearance: alert and in no apparent distress Eye Eye exam: Present normal appearance, PERRL and EOMI ENT ENT exam: Present mucous membranes moist and normal external ear exam Expanded ENT Exam External ear exam: Present normal external inspection TM/Canal exam: Bilateral TM: erythema and bulging Nose exam: Absent sinus tenderness Nasal speculum exam: Bilateral: normal Mouth exam: Present normal external inspection; Absent drooling Teeth exam: Present normal inspection Throat exam: Present tonsillar erythema and tonsillomegaly Neck Neck exam: Present normal inspection, full ROM and trachea midline; Absent tenderness, lymphadenopathy or thyromegaly Chest Chest inspection: Present normal inspection and symmetric chest wall rise; Absent tenderness or rash Respiratory Respiratory exam: Present normal lung sounds bilaterally; Absent respiratory distress, wheezes, stridor or accessory muscle use Cardiovascular Cardiovascular exam: Present regular rate, normal rhythm and normal heart sounds Abdominal Exam Abdominal exam: Present soft; Absent distention, tenderness, guarding, rebound or rigidity Extremities Exam Extremities exam: Present normal inspection, full ROM and normal capillary refill; Absent tenderness or calf tenderness Back Exam Back exam: Present normal inspection and full ROM; Absent tenderness Neurological Exam Neurological exam: Present alert and oriented X3 Psychiatric Psychiatric exam: Present normal affect and normal mood Skin Skin exam: Present warm, dry, intact and normal color Lymphatic Lymphatic Findings: no adenopathy Medical Decision Making Medical Records Medical records reviewed: No I reviewed the patient's medical records. Screening: Per USPSTF and CDC recommendations, given the prevalence of disease in our region, it is our hospital?s policy to screen for HIV and viral Hepatitis for all patients aged 18 and over and those with ongoing risk factors. Terrell Inquiry Pt receiving controlled substance: No Lab Data Lab results reviewed: Yes I reviewed the patient's lab results.
[2024-07-01 14:11] VITALS: BP 165/92; PULSE 109; RESP 20; TEMP 37.9; O2SAT 94; BMI 37.5
[2024-07-01 14:43] VITALS: BP 165/92; PULSE 109; RESP 20; TEMP 37.9
[2024-07-01 14:45] LABS: Influenza A, PCR Not Detected (NotDetected); Influenza B, PCR Not Detected (NotDetected)
[2024-07-01 16:02] LABS: Coronavirus 19, PCR Detected (NotDetected)
== END 2024-07-01 14:45 | disposition home or self-care (01) ==
PROVIDERS: Emergency Provider Nurse Practitioner Family; PCP Internal Medicine
DX: B34.9 Viral infection, unspecified (principal); Z20.822 Contact with and (suspected) exposure to COVID-19
CPT/HCPCS: 87636; 99213; G0381

== ENCOUNTER 2024-07-08 21:24 | Emergency (ER) | payer OTHER, SELFPAY ==
[2024-07-08 21:26] VITALS: BP 185/106; PULSE 98; RESP 18; TEMP 36.6; O2SAT 98; BMI 34.0
--- NOTE | 2024-07-08 22:44 | CT_ITS ---
PROCEDURE INFORMATION: Exam: CT Abdomen And Pelvis With Contrast Exam date and time: 07/08/2024 11:25 PM Age: 63 years old Clinical indication: Abdominal pain; Additional info: Left lower thoracic/luq/llq abd pain, fever TECHNIQUE: Imaging protocol: Computed tomography of the abdomen and pelvis with contrast. 3D rendering (Not supervised by radiologist): MIP and/or 3D reconstructed images were created by the technologist. Radiation optimization: All CT scans at this facility use at least one of these dose optimization techniques: automated exposure control; mA and/or kV adjustment per patient size (includes targeted exams where dose is matched to clinical indication); or iterative reconstruction. Contrast material: ISOVUE; Contrast volume: 70 ml; Contrast route: IV; COMPARISON: CT ABDOMEN PELVIS WO CON 11/21/2021 11:59 AM FINDINGS: Lungs: Mild bibasilar atelectasis. Diaphragm: A small hiatal hernia is present. Liver: Normal. No mass. Gallbladder and biliary ducts: Normal. No calcified stones. No ductal dilation. Pancreas: Normal. No ductal dilation. Spleen: Normal. No splenomegaly. Adrenal glands: Normal. No mass. Kidneys and ureters: Normal. No hydronephrosis. Stomach and bowel: There is a diverticulum of the 2nd portion of duodenum. There is left colon diverticulosis without acute inflammation. No obstruction. No mucosal thickening. Appendix: No evidence of appendicitis. The appendix is not identified as a discrete structure however, there is no inflammatory process in the region of the cecum. Intraperitoneal space: Unremarkable. No free air. No significant fluid collection. Vasculature: Mild calcific atherosclerotic disease without aneurysm or dissection. Lymph nodes: Unremarkable. No enlarged lymph nodes. Urinary bladder: Unremarkable as visualized. Reproductive: The uterus is absent. Bones/joints: There are moderate degenerative changes of the spine. No acute fracture. Soft tissues: Unremarkable. IMPRESSION: There is no acute process evident within the abdomen or pelvis.
--- NOTE | 2024-07-08 22:44 | CT_ITS ---
PROCEDURE INFORMATION: Exam: CTA Chest With Contrast Exam date and time: 07/08/2024 11:25 PM Age: 63 years old Clinical indication: Fever; Additional info: Left lower thoracic/luq/llq abd pain, fever TECHNIQUE: Imaging protocol: Computed tomographic angiography of the chest with contrast. Exam focused on the arteries. 3D rendering (Not supervised by radiologist): MIP and/or 3D reconstructed images were created by the technologist. Radiation optimization: All CT scans at this facility use at least one of these dose optimization techniques: automated exposure control; mA and/or kV adjustment per patient size (includes targeted exams where dose is matched to clinical indication); or iterative reconstruction. Contrast material: ISOVUE; Contrast volume: 70 ml; Contrast route: INTRAVENOUS (IV); COMPARISON: CR XR CHEST 2V 09/14/2022 6:58 PM FINDINGS: Pulmonary arteries: Normal. No pulmonary emboli. Aorta: Unremarkable. No aortic aneurysm. No aortic dissection. Lungs: There is mild bibasilar atelectasis. No consolidation. No mass. There is a right apical calcified granuloma. Pleural spaces: Unremarkable. No pneumothorax. No pleural effusion. Heart: Unremarkable. No cardiomegaly. No pericardial effusion. Lymph nodes: Unremarkable. No enlarged lymph nodes. Bones/joints: There are [id number] degenerative changes of the spine. No acute fracture. Soft tissues: Unremarkable. IMPRESSION: 1. Mild bibasilar atelectasis. 2. No pulmonary embolus. Subsegmental pulmonary arteries are inadequately evaluated.
--- NOTE | 2024-07-08 22:46 | HMH.EDGENADL ---
Discharge Plan Disposition Patient Disposition: Home, Self-Care Prescriptions Prescriptions: New methocarbamol 500 mg tablet 500 mg PO Q6H PRN (Reason: pain) Qty: 30 0RF No Action escitalopram oxalate 10 mg tablet 10 mg PO DAILY famotidine 20 mg tablet 20 mg PO HS Qty: 30 2RF losartan-hydrochlorothiazide 50-12.5 mg tablet 1 tab PO DAILY Qty: 30 2RF atorvastatin 20 mg tablet 20 mg PO HS Qty: 90 3RF meloxicam 15 mg tablet 15 mg PO DAILY Qty: 30 2RF Rx Instructions: Take with food aspirin 81 mg Tablet 81 mg PO DAILY benzonatate 100 mg capsule 100 mg PO TIDP PRN (Reason: Cough) Qty: 30 0RF ondansetron 4 mg Tablet,Disintegrating 4 mg PO Q8H PRN (Reason: Nausea) Qty: 12 0RF Referrals Follow up/Referrals: Kristofer Burleson MD [Primary Care Provider] - See instructions Activity Restrictions/Add. Instructions Additional Instructions/Restrictions: Please follow-up with your primary care provider. Please return to the emergency department if you develop any new or worsening symptoms or become concerned for your health. Clinical Impressions Clinical Impression: Abdominal pain, LUQ, Abdominal pain, LLQ Instructions Patient Instructions: DI for Acute Abdominal Pain Print Language Print Language: Singaporean Discharge ED Provider: Jabier Fish General Adult HPI <Devante Navarro MD - Last Filed: 07/08/24 22:48> General Chief complaint: Abdominal Pain Stated complaint: pian left shoulder,neck,under left breast Time Seen by Provider: 07/08/24 21:42 History of Present Illness HPI narrative: Patient is a 63-year-old female presenting today with left upper quadrant left lower quadrant abdominal pain. She is also had a fever over the last few days Tmax of 100.4 yesterday. She has not taken her temperature today. States she had a respiratory illness within the last few weeks was diagnosed with COVID at that time but the symptoms are different. Does have pain with inspiration on the left side. Does have a history of diverticulitis. No hematuria changes in bowel movements such as diarrhea constipation hematochezia etc. Related Data Home Medications ?Medication ?Instructions ?Recorded ?Confirmed aspirin 81 mg tablet 81 mg PO DAILY heart 09/14/22 07/01/24 escitalopram oxalate 10 mg tablet 10 mg PO DAILY 03/30/24 07/01/24 Previous Rx's ?Medication ?Instructions ?Recorded atorvastatin 20 mg tablet 20 mg PO HS #90 tabs 02/18/24 famotidine 20 mg tablet 20 mg PO HS For GI protection 03/30/24 while on NSAIDs #30 tabs losartan 50 mg-hydrochlorothiazide 1 tab PO DAILY #30 tabs 06/06/24 12.5 mg tablet benzonatate 100 mg capsule 100 mg PO TIDP PRN Cough #30 caps 07/01/24 ondansetron 4 mg disintegrating 4 mg PO Q8H PRN Nausea #12 tabs 07/01/24 tablet meloxicam 15 mg tablet 15 mg PO DAILY #30 tabs 07/07/24 methocarbamol 500 mg tablet 500 mg PO Q6H PRN pain #30 tabs 07/09/24 Allergies Allergy/AdvReac Type Severity Reaction Status Date / Time No Known Allergies Allergy Verified 06/06/24 15:34 PFS <Devante Navarro MD - Last Filed: 07/08/24 22:48> [facility] Disclaimer: The information contained in this section may have been updated after the patient was seen, as this information can be updated by other users. Social History Smoking Status: Unknown if ever smoked alcohol intake: never current occupational status: employed Travel in the last 8 weeks: None Other Medical History Have you received the Pneumonia Vaccine: No <Devante Navarro MD - Last Filed: 07/08/24 22:48> ROS Obtained: Yes All systems reviewed & no additional complaints except as documented Physical Exam <Devante Navarro MD - Last Filed: 07/08/24 22:48> General General appearance: in distress (Holding her left upper quadrant pain with any type of movement) Chest Chest inspection: Present normal inspection and symmetric chest wall rise Respiratory Respiratory exam: Present normal lung sounds bilaterally; Absent respiratory distress Cardiovascular Cardiovascular exam: Present normal rhythm and tachycardia Abdominal Exam Abdominal exam: Present soft and tenderness (Patient has significant tenderness in the left upper left mid abdomen left lower quadrant no rebound or guarding); Absent distention Back Exam Back exam: Present CVA tenderness (L) Neurological Exam Neurological exam: Present alert and oriented X3 Medical Decision Making <Devante Navarro MD - Last Filed: 07/08/24 22:48> Medical Records Screening: Per USPSTF and CDC recommendations, given the prevalence of disease in our region, it is our hospital?s policy to screen for HIV and viral Hepatitis for all patients aged 18 and over and those with ongoing risk factors. Terrell Inquiry Pt receiving controlled substance: No Vital Signs: 07/08/24 21:26 07/08/24 23:00 07/08/24 23:33 Temperature 97.8 F Temperature Source Oral Pulse Rate 98 H 101 H Pulse Rate [Left] 98 H Respiratory Rate 18 Blood Pressure [Right Arm] 185/106 H Blood Pressure Mean [Right Arm] 132 02 Sat by Pulse Oximetry 98 98 93 L Oxygen Delivery Method Room Air Lab Data Lab Results 07/08/24 22:40: WBC 10.4, RBC 4.75, Hgb 14.1, Hct 42.5, MCV 89.5, MCH 29.7, MCHC 33.1, RDW 13.6, Plt Count 295, MPV 7.5, Neut % (Auto) 63.6, Lymph % (Auto) 26.9, [place] % (Auto) 7.0, Eos % (Auto) 1.8, Baso % (Auto) 0.7, Neut # (Auto) 6.6, Lymph # (Auto) 2.8, [place] # (Auto) 0.7, Eos # (Auto) 0.2, Baso # (Auto) 0.1, Sodium 138, Potassium 3.8, Chloride 102, Carbon Dioxide 29, Anion Gap 10.8, BUN 14, Creatinine 0.70, Estimated Creat Clear 75, Estimated GFR 85, Est GFR ( Amer) 103, Glucose 107 H, Lactate 1.8, Calcium 9.1, Total Bilirubin 0.4, AST 26, ALT 25, Alkaline Phosphatase 75, Troponin I < 0.01, Total Protein 7.5, Albumin 4.2, Globulin 3.3 H, Albumin/Globulin Ratio 1.3, Lipase 51 07/09/24 01:59: Urine Color Yellow, Urine Appearance Clear, Urine pH 6.0, Ur Specific [place] 1.010, Urine Protein Negative, Urine Glucose (UA) Negative, Urine Ketones Negative, Urine Blood Negative, Urine Nitrate Negative, Urine Bilirubin Negative, Urine Urobilinogen 0.2, Ur Leukocyte Esterase Negative, Urine RBC None, Urine WBC Occasional, Ur Squamous Epith Cells None, Urine Bacteria None 07/09/24 02:40: Troponin I < 0.01 07/08/24 22:40 07/08/24 22:40 Orders (Tests/Meds): ED MEDICATIONS Generic Name Dose Route Start Last Admin Trade Name Misbah PRN Reason Stop Dose Admin Sodium Chloride 10 ml 07/08/24 23:34 07/08/24 23:35 Sodium Chloride 0.9% 10ml Syr (Rad Only) IV 08/07/24 23:33 10 ml NEEDED PRN Administration Maintain IV Site Discontinued Medications Generic Name Dose Route Start Last Admin Trade Name Misbah PRN Reason Stop Dose Admin Acetaminophen 1,000 mg 07/08/24 23:54 07/09/24 00:06 Acetaminophen 500mg Tab PO 07/08/24 23:55 1,000 mg ONCE ONE Administration Sodium Chloride 1,000 mls @ 999 mls/hr 07/08/24 22:45 07/08/24 22:57 Sod Chlor 0.9% 1000ml Bag IV 07/08/24 23:45 999 mls/hr .Q1H1M MARISSA Administration Iopamidol 70 ml 07/08/24 23:34 07/08/24 23:35 Iopamidol-370 (76%);100ml Bottle IV 07/08/24 23:35 70 ml ONCE ONE Administration Morphine Sulfate 4 mg 07/08/24 22:44 07/08/24 22:56 Morphine 4mg/Ml Syringe IV 07/08/24 22:45 4 mg ONCE ONE Administration Morphine Sulfate 2 mg 07/08/24 23:54 07/09/24 00:06 Morphine 2mg/Ml Syringe IV 07/08/24 23:55 2 mg ONCE ONE Administration Ondansetron HCl 4 mg 07/08/24 22:44 07/08/24 22:56 Ondansetron 4mg/2ml Vial IV 07/08/24 22:45 4 mg ONCE ONE Administration Sodium Chloride 50 ml 07/08/24 23:34 07/08/24 23:35 0.9 % Sodium Chloride 50 Ml Vial IV 07/08/24 23:35 50 ml ONCE ONE Administration ORDERS Category Date Time Status CT abdomen pelvis w con Stat Cat Scan 07/08/24 22:[address] angio chest PE protocol Stat Cat Scan 07/08/24 22:44 Completed CBC w/Auto Diff [Complete Blood Count Auto Diff] Stat Lab 07/08/24 22:40 Completed CMP [Comprehensive Metabolic Panel] Stat Lab 07/08/24 22:40 Completed Lactic Acid Stat Lab 07/08/24 22:40 Completed Lipase Stat Lab 07/08/24 22:40 Completed Trop I [Troponin I] Stat Lab 07/08/24 22:40 Completed Troponin I Q3H Lab 07/09/24 02:40 Completed Troponin I Q3H Lab 07/09/24 04:45 Ordered UA [Urinalysis and Microscopic] Stat Lab 07/09/24 01:59 Completed Blood Culture Stat Micro 07/08/24 23:12 Received Medical Decision Narrative: 63-year-old female with above history and physical presenting with left upper left lower quadrant and pleuritic chest pain with a fever. Differential includes pneumonia pulmonary embolism splenic infarction colitis diverticulitis urinary tract infection etc. Will get infectious workup and CT scan of the chest abdomen pelvis for further evaluation and management IV fluids pain medicine nausea medicine have been administered will reassess. Care will be transitioned to Dr. Jabier Fish at 11 pm. <Jabier Fish MD - Last Filed: 07/09/24 03:24> Vital Signs: 07/08/24 21:26 07/08/24 23:00 07/08/24 23:33 Temperature 97.8 F Temperature Source Oral Pulse Rate 98 H 101 H Pulse Rate [Left] 98 H Respiratory Rate 18 Blood Pressure [Right Arm] 185/106 H Blood Pressure Mean [Right Arm] 132 02 Sat by Pulse Oximetry 98 98 93 L Oxygen Delivery Method Room Air Lab Data Lab Results 07/08/24 22:40: WBC 10.4, RBC 4.75, Hgb 14.1, Hct 42.5, MCV 89.5, MCH 29.7, MCHC 33.1, RDW 13.6, Plt Count 295, MPV 7.5, Neut % (Auto) 63.6, Lymph % (Auto) 26.9, [place] % (Auto) 7.0, Eos % (Auto) 1.8, Baso % (Auto) 0.7, Neut # (Auto) 6.6, Lymph # (Auto) 2.8, [place] # (Auto) 0.7, Eos # (Auto) 0.2, Baso # (Auto) 0.1, Sodium 138, Potassium 3.8, Chloride 102, Carbon Dioxide 29, Anion Gap 10.8, BUN 14, Creatinine 0.70, Estimated Creat Clear 75, Estimated GFR 85, Est GFR ( Amer) 103, Glucose 107 H, Lactate 1.8, Calcium 9.1, Total Bilirubin 0.4, AST 26, ALT 25, Alkaline Phosphatase 75, Troponin I < 0.01, Total Protein 7.5, Albumin 4.2, Globulin 3.3 H, Albumin/Globulin Ratio 1.3, Lipase 51 07/09/24 01:59: Urine Color Yellow, Urine Appearance Clear, Urine pH 6.0, Ur Specific [place] 1.010, Urine Protein Negative, Urine Glucose (UA) Negative, Urine Ketones Negative, Urine Blood Negative, Urine Nitrate Negative, Urine Bilirubin Negative, Urine Urobilinogen 0.2, Ur Leukocyte Esterase Negative, Urine RBC None, Urine WBC Occasional, Ur Squamous Epith Cells None, Urine Bacteria None 07/09/24 02:40: Troponin I < 0.01 Orders (Tests/Meds): ED MEDICATIONS Generic Name Dose Route Start Last Admin Trade Name Misbah PRN Reason Stop Dose Admin Sodium Chloride 10 ml 07/08/24 23:34 07/08/24 23:35 Sodium Chloride 0.9% 10ml Syr (Rad Only) IV 08/07/24 23:33 10 ml NEEDED PRN Administration Maintain IV Site Discontinued Medications Generic Name Dose Route Start Last Admin Trade Name Fremihir PRN Reason Stop Dose Admin Acetaminophen 1,000 mg 07/08/24 23:54 07/09/24 00:06 Acetaminophen 500mg Tab PO 07/08/24 23:55 1,000 mg ONCE ONE Administration Sodium Chloride 1,000 mls @ 999 mls/hr 07/08/24 22:45 07/08/24 22:57 Sod Chlor 0.9% 1000ml Bag IV 07/08/24 23:45 999 mls/hr .Q1H1M MARISSA Administration Iopamidol 70 ml 07/08/24 23:34 07/08/24 23:35 Iopamidol-370 (76%);100ml Bottle IV 07/08/24 23:35 70 ml ONCE ONE Administration Morphine Sulfate 4 mg 07/08/24 22:44 07/08/24 22:56 Morphine 4mg/Ml Syringe IV 07/08/24 22:45 4 mg ONCE ONE Administration Morphine Sulfate 2 mg 07/08/24 23:54 07/09/24 00:06 Morphine 2mg/Ml Syringe IV 07/08/24 23:55 2 mg ONCE ONE Administration Ondansetron HCl 4 mg 07/08/24 22:44 07/08/24 22:56 Ondansetron 4mg/2ml Vial IV 07/08/24 22:45 4 mg ONCE ONE Administration Sodium Chloride 50 ml 07/08/24 23:34 07/08/24 23:35 0.9 % Sodium Chloride 50 Ml Vial IV 07/08/24 23:35 50 ml ONCE ONE Administration ORDERS Category Date Time Status CT abdomen pelvis w con Stat Cat Scan 07/08/24 22:[address] angio chest PE protocol Stat Cat Scan 07/08/24 22:44 Completed CBC w/Auto Diff [Complete Blood Count Auto Diff] Stat Lab 07/08/24 22:40 Completed CMP [Comprehensive Metabolic Panel] Stat Lab 07/08/24 22:40 Completed Lactic Acid Stat Lab 07/08/24 22:40 Completed Lipase Stat Lab 07/08/24 22:40 Completed Trop I [Troponin I] Stat Lab 07/08/24 22:40 Completed Troponin I Q3H Lab 07/09/24 02:40 Completed Troponin I Q3H Lab 07/09/24 04:45 Ordered UA [Urinalysis and Microscopic] Stat Lab 07/09/24 01:59 Completed Blood Culture Stat Micro 07/08/24 23:12 Received Medical Decision Narrative: 63-year-old female with above history and physical presenting with left upper left lower quadrant and pleuritic chest pain with a fever. Differential includes pneumonia pulmonary embolism splenic infarction colitis diverticulitis urinary tract infection etc. Will get infectious workup and CT scan of the chest abdomen pelvis for further evaluation and management IV fluids pain medicine nausea medicine have been administered will reassess. Care will be transitioned to Dr. Jabier Fish at 11 pm. Abe CLAY: I assumed care of the patient at the time of handoff from the prior provider. Patient required additional pain medication. Laboratory workup interpreted by me shows no evidence of urinary tract infection, shows troponin negative x 2, no significant leukocytosis, no significant electrolyte derangement. CT imaging interpreted by me shows no large PE, no acute intra-abdominal pathology such as diverticulitis. After discussion with patient, it sounds like she is getting over COVID. She reports that she had a fever yesterday but it was only 99, not a true fever. I will send a muscle relaxer for her to have to see if it helps with the pain. Patient discharged in stable condition with return precautions. Critical Care <Devante Navarro MD - Last Filed: 07/08/24 22:48> Critical Care Time Critical Care Time: No
[2024-07-08] MEDS: ONDANSETRON 4MG/2ML VIAL 4 MG IV (22:56)
[2024-07-08] MEDS: MORPHINE 4MG/ML SYRINGE 4 MG IV (22:56)
[2024-07-08 22:57] LABS: Basophils # 0.1 K/mm3 (0-0.2); Basophils % 0.7 % (0.1-2.0); Eosinophils # 0.2 K/mm3 (0.0-0.4); Eosinophils % 1.8 % (0.1-12.0); Hematocrit 42.5 % (37.0-47.0); Hemoglobin 14.1 g/dL (12.2-16.2); Lymphocytes # 2.8 K/mm3 (0.7-4.5); Lymphocytes % 26.9 % (10-50); Mean Corpuscular HGB Conc 33.1 g/dL (31.8-35.4); Mean Corpuscular Hemoglobin 29.7 pg (27.0-31.2); Mean Corpuscular Volume 89.5 fl (81-99); Mean Platelet Volume 7.5 fl (7.4-10.4); Monocytes # 0.7 K/mm3 (0.1-1.0); Neutrophils # 6.6 K/mm3 (1.8-7.8); Neutrophils % 63.6 % (37.0-80.0); Platelet Count 295 K/mm3 (142-424); Red Blood Count 4.75 M/mm3 (4.20-5.40); Red Cell Distribution Width 13.6 % (11.5-17.5); White Blood Count 10.4 K/mm3 (4.8-10.8)
[2024-07-08] MEDS: 0.9 % SODIUM CHLORIDE 1000ML 1,000 ML 999 ML IV (22:57)
[2024-07-08 23:00] VITALS: PULSE 98; O2SAT 98
[2024-07-08 23:04] LABS: Lactic Acid 1.8 mmol/L (0.7-2.1)
[2024-07-08 23:05] LABS: Alanine Aminotransferase 25 U/L (12-78); Albumin Level 4.2 g/dl (3.5-5.0); Albumin/Globulin Ratio 1.3 (1.1-1.8); Alkaline Phosphatase 75 U/L (38-126); Anion Gap 10.8 mEq/L (5-15); Aspartate Amino Transferase 26 U/L (14-36); Bilirubin,Total 0.4 mg/dl (0.2-1.3); Blood Urea Nitrogen 14 mg/dl (7-17); Calcium 9.1 mg/dl (8.4-10.2); Carbon Dioxide 29 mmol/L (22.0-30.0); Chloride 102 mmol/L (98-107); Creatinine Clearance Estimated 75 mL/min (50-200); Estimated Glomerular Filt Rate 85 ml/min (>60); GFR (African American) 103 ML/MIN (>60); Globulin 3.3 g/dL (1.3-3.2); Glucose 107 mg/dl (74-100); Lipase 51 U/L (23-300); Potassium 3.8 mmoL/L (3.5-5.1); Sodium 138 mmol/L (136-145); Total Protein,Serum 7.5 g/dl (6.3-8.2)
[2024-07-08 23:17] LABS: Troponin I < 0.01 ng/ml (0.00-0.034)
[2024-07-08 23:33] VITALS: PULSE 101; O2SAT 93
[2024-07-08] MEDS: SODIUM CHLORIDE 0.9% 10ML SYR (RAD ONLY) 10 ML IV (23:35)
[2024-07-08] MEDS: IOPAMIDOL-370 (76%);100ML BOTTLE 70 ML IV (23:35)
[2024-07-08] MEDS: 0.9 % SODIUM CHLORIDE 50 ML VIAL IV (23:35)
[2024-07-09] MEDS: ACETAMINOPHEN 500MG TAB 1000 MG PO (00:06)
[2024-07-09] MEDS: MORPHINE 2MG/ML SYRINGE 2 MG IV (00:06)
[2024-07-09 02:05] LABS: Microscopic, Urine URINE MICROSCOPIC (MICROSCOPIC)
[2024-07-09 02:07] LABS: Appearance,Urine CLEAR (Clear); Bilirubin,Urine Negative (Negative); Blood, Urine Negative (Negative); Color,Urine YELLOW (Yellow); Glucose,Urine (UA) Negative (Negative); Ketones,Urine Negative (Negative); Leukocyte Esterase,Urine Negative (Negative); Nitrate,Urine Negative (Negative); Protein,Urine Negative (Negative); Urobilinogen,Urine 0.2 EU/dl (0.2)
[2024-07-09 02:18] LABS: WBC,Urine Occasional #/hpf (0-3)
[2024-07-09 03:13] LABS: Troponin I < 0.01 ng/ml (0.00-0.034)
[2024-07-09 03:36] VITALS: BP 162/84; PULSE 92; RESP 16; TEMP 37.2; O2SAT 98
--- NOTE | 2024-07-09 03:37 | PC.NURSE ---
IV removed; catheter tip intact. Bleeding controlled.
== END 2024-07-09 03:41 | disposition home or self-care (01) ==
PROVIDERS: Student in an Organized Health Care Education/Training Program; Emergency Provider Emergency Medicine; PCP Internal Medicine
DX: R10.12 Left upper quadrant pain (principal); R10.32 Left lower quadrant pain; R50.9 Fever, unspecified; M25.512 Pain in left shoulder; M54.2 Cervicalgia; R07.1 Chest pain on breathing
CPT/HCPCS: 71275; 74177; 80053; 81001; 83605; 83690; 84484; 85025; 87040; 96361; 96374; 96375; 99285; J2270; J2405; J7030; Q9967

== ENCOUNTER 2025-04-04 09:40 | Outpatient (CLI) | payer OTHER, SELFPAY ==
--- NOTE | 2025-04-04 09:42 | XR_ITS ---
FINAL REPORT CLINICAL HISTORY: New onset lumbago with right sciatica COMPARISON: None FINDINGS: LUMBOSACRAL SPINE SERIES Five views of the lumbosacral spine were obtained. There is no fracture present. There is no malalignment. There is moderate disc space narrowing at L4-5. Trans facet sclerosis is noted in the lower lumbar spine. IMPRESSION: Advanced changes of degenerative disc disease at L4-5. No acute process Reviewed, Interpreted and Dictated by Mikael Piedra MD Transcribed by Neetu Ennis Authenticated and [facility]
--- OUTSIDE RECORDS SUMMARY | 2025-04-04 09:53 | XMS_ITS | Clinical Summary ---
Author Organization [facility] Address [address] [place] [address] Care Team Providers Care Manager Legal Name Role Phone Kristofer Burleson MD Primary Care Provider [phone] Allergies No known active allergies Medications ranitidine (ZANTAC) 300 MG tablet Take 300 mg by mouth every night. Active carvedilol (COREG) 6.25 MG tablet Take 6.25 mg by mouth 2 (two) times a day with meals. Active losartan-hydroc hlorothiazide (HYZAAR) 100-25 MG per tablet Take 1 tablet by mouth daily. Active pravastatin (PRAVACHOL) 40 MG tablet Take 40 mg by mouth Every Night. Active naproxen (NAPROSYN) 500 MG tablet Take 1 tablet by mouth 2 (Two) Times a Day With Meals. Must take an hour after aspirin if needed. 7 Active aspirin EC 325 MG EC tablet Take 1 tablet by mouth Daily. For 1 month 30 tablet 7 Active docusate sodium 100 MG capsule Take 100 mg by mouth 2 (Two) Times a Day. 60 capsule 7 Active ropivacaine (NAROPIN) 0.2 % 24 mg/hr by Peripheral Nerve route Continuous. 7 Active Active Problems Problem Noted Date Diagnosed Date Hypokalemia, replaced 11/20/2016 Arthritis of knee, right 11/19/2016 S/P Right knee medial unicompartmental replaceme nt 11/19/2016 GERD (gastroesophageal reflux disease) 7 HTN (hypertension) 11/19/2016 Hyperlipidemia 11/19/2016 Social History Tobacco Use Types Packs/Day Years Used Date Smoking Tobacco: Never Smokeless Tobacco: Never Alcohol Use Standard Drinks/Week Comments No 0 (1 standard drink = 0.6 oz pur e alcohol) Abuse Screen Answer Date Recorded Unsafe at Home or Work/School Not on file Feels Threatened by Someone? Not on file 06/2023 Does Anyone Keep You from Co ntacting Others or Doint Things Outside the Home? Not on file 05/12/2023 Physical Sign of Abuse Present Not on file 1 Housing Stability Answer Date Recorded Current Living Arrangements Not on file 05/02 Potentially Unsafe Housing Conditions Not on [place] 05/12/2023 Family and Community Support Answer [place] e Recorded Help with Day-to-Day Activities Not on file 05/12/2023 Lonely or Isolated Not on file 05/12/2023 Employment Answer Date Recorded Do you want help finding or keeping work or a sunny b? Not on file 05/12/2023 Disabilities Answer Date Recorded Concentrating, Remembering, or Making Decisions Difficulty Not on file 05/12/2023 Doing Errands Independently Difficulty Not on fi le 05/12/2023 Education Answer Date Recorded Help with school or training? Not on file Preferred Language Not on file 05/12/2023 Comments No Sex and Gender Information Value Date Recorded Sex Assigned at Not on file Legal Sex Female 12:49 PM EST Gender Identity Not on file Sexual Orientation Not on file Last Filed Vital Signs Vital Sign Reading Time Taken Comments Blood Pressure 154/71 11/20/2016 8:00 AM EDT Pulse 90 11/20/2016 8:00 AM EDT Temperature 37.3 C (99.1 F) 11/20/2016 8:00 AM EDT Respiratory Rate 16 11/20/2016 8:00 AM EDT Oxygen Saturation 93% 11/20/2016 8:00 AM EDT Inhaled Oxygen Concentration - - Weight 84.8 kg (187 lb) 11/19/2016 11:02 AM EDT Height 154.9 cm (5' 1 ) 11/19/2016 11:02 AM EDT Body Mass Index 35.33 11/19/2016 11:02 AM EDT Plan of Treatment Health Maintenance Due Date Last Done Comments Annual Gynecologic Pelvic and Breast Exam 1961 LIPID PANEL 1961 TDAP/TD VACCINES (1 - Tdap) 1980 MAMMOGRAM 2001 COLOGUARD 2006 COLON CANCER SCREENING 5 YEAR SIGMOIDOSCOPY 2006 COLONOSCOPY 2006 COL[address]AL CANCER SCREENING 2006 CT COLONOGRAPHY 2006 FECAL OCCULT BLOOD TEST 2006 FIT Testing (1 year) 2006 Pneumococcal Vaccine 50+ (1 of 1 - PCV) 12/15/2011 ZOSTER VACCINE (1 of 2) 12/15/2011 ANNUAL PHYSICAL 11/10/2016 HEPATITIS C SCREENING 11/10/2016 COVID-19 Vaccine (1 - 2023- season) 2024 INFLUENZA VACCINE 05/02/2025 Medical Devices Implanted Type Area Customer Development Representative Device Identifier Shelf Expiration Date Model / Serial / Lot Cmt Bone Endurance Smartset 40gm - [id number] Implanted:Qty: 2 on 11/19/2016 by Topher Mckay MD at [facility] Implant Right: Knee DEPUY 07/01/2018 [id number] / / [id number] Comp Fem Sigma Hp Uni Cmt Sz4 Rm/Ll - [id number] Implanted:Qty: 1 on 11/19/2016 by Topher Mckay MD at [facility] Implant Right: Knee DEPUY 09/29/2026 [id number] / / [id number] Insrt Tib Sigma Hp Unipa 3 8 Rm/Ll - [id number] Implanted:Qty: 1 on 11/19/2016 by Topher Mckay MD at [facility] Implant Right: Knee DEPUY 01/29/2021 [id number] / / [id number] Prt Kn Unipol Depuy [id number] - [id number] Implanted:Qty: 1 on 11/19/2016 by Topher Mckay MD at [facility] Implant DEPUY CAPKNEEPARTIA [id number] / / [place] [address] [address] [place] [address] Advance Directives * Full Code (Latest Code Status on File) Date Activated Date Inactivated Comments 11/19/2016 3:28 PM 11/20/2016 4:51 PM Care Teams Manager Legal Relationship Specialty Start Date End Date Kristofer Burleson MD [facility] [address] [address] PCP - General 09/27/15
--- OUTSIDE RECORDS SUMMARY | 2025-04-04 09:53 | XMS_ITS | Clinical Summary ---
Author Organization [facility] Address [address] [id number] Care Team Providers Care Position Classification Specialist Name Role Phone Kristofer Burleson MD Primary Care Provider [phone] Allergies No known active allergies Medications atorvastatin (Lipitor) 20 MG tablet TAKE 1 TABLET BY MOUTH EVERY BEDTIME 09/22/2021 Active losartan (Cozaar) 100 MG tablet TAKE 1 TABLET BY MOUTH EVERY MORNING FOR BLOOD PRESSURE 06/18/2022 Active escitalopram (Lexapro) 10 MG tablet Take 10 mg by mouth 1 (one) time each day. 06/16/2022 Active aspirin 325 MG tablet Take 325 mg by mouth 1 (one) time each day. Active methocarbamol (Robaxin) 500 MG tablet Take 1 tablet (500 mg) by mouth 4 (four) times a day if needed for muscle spasms for up to 10 days. 40 tablet 07/17/2024 Active Social History Tobacco Use Types Packs/Day Years Used Date Smoking Tobacco: Never Smokeless Tobacco: Never Tobacco Cessation:Counseling Given: Not Answered Alcohol Use Standard Drinks/Week Comments Never 0 (1 standard drink = 0.6 oz pur e alcohol) Comments Unknown Sex and Gender Information Value Date Recorded Sex Assigned at Not on file Legal Sex Female 8:46 PM EDT Gender Identity Not on file Sexual Orientation Not on file Last Filed Vital Signs Vital Sign Reading Time Taken Comments Blood Pressure 137/79 07/17/2024 7:22 AM EST Pulse 94 07/17/2024 7:22 AM EST Temperature 36.9 C (98.5 F) 07/17/2024 7:22 AM EST Respiratory Rate 22 07/17/2024 7:22 AM EST Oxygen Saturation 97% 07/17/2024 7:22 AM EST Inhaled Oxygen Concentration - - Weight 83.9 kg (184 lb 15.5 oz) 07/17/2024 7:22 AM EST Height 154.9 cm (5' 1 ) 07/17/2024 7:22 AM EST Body Mass Index 34.95 07/17/2024 7:22 AM EST Plan of Treatment Health Maintenance Due Date Last Done Comments [facility]-Depression Screening 1961 [facility]-/Child/Adol SDOH Screenings 1960 [facility]-Obesity Intervention 12/15/1967 [facility]- SDOH Screenings 12/15/1979 [facility]-Adult SDOH Screenings 12/15/1979 [facility]-DTaP,Tdap,and Td Vaccine s (1 - Tdap) 1980 [facility]-Pneumococcal Vaccine: 50 + Years (1 of 2 - PCV) 1980 CT Colonography 2006 Colonoscopy 2006 FIT-DNA 2006 FIT 2006 FOBT 2006 Sigmoidoscopy 2006 [facility]-Colorectal Cancer Screening 2006 [facility]-Breast Cancer Screening 12/15/2011 [facility]-Zoster Vaccines (1 of 2) 12/15/2011 [facility]-Hepatitis A Vaccines (2 of 2 - Risk 2-dose series) 01/17/2019 07/19/2018 [facility]-RSV Vaccine: 60+ Years o r (1 - Risk 60-74 years 1-dose series) 2021 [id number] Vaccine ( season) 2024 07/31/2021, 11/13/2020, 10/16/2020 [facility]-Influenza Vaccine (#1) 2025 06/06/2024 [facility]-HIV Screening Completed 07/17/2024 [facility]-Hepatitis C Screening Completed 07/17/2024 HPV Vaccines Aged Out No longer eligi ble based on patient's age to complete this topic [facility]-HIB Vaccines Aged Out No longer e ligible based on patient's age to complete this topic [facility]-IPV Vaccines Aged Out No longer e ligible based on patient's age to complete this topic [facility]-Rotavirus Vaccines Aged Out No lo nger eligible based on patient's age to complete this topic Procedures Procedure Name Priority Date/Time Associated Diagnosis Comments HEPATITIS C ANTIBODY - ED W/REFLEX TO HCV QUANT PCR STAT 07/17/2024 7:56 AM EST ED HIV 1/2 ANTIBODY/ANTIGEN SCREEN WITH REFLEX TO HIV I/II DIFFERENTIATION STAT 07/17/2024 7:56 AM EST from Last 3 Months or Most Recently Relevant to Health Maintenance Results * ED HIV 1/2 Antibody/Antigen Screen w/Reflex to HIV 1/2 Differentiation (07/17/2024 7:56 AM EST) HIV 1 & 2 Antibody/Antigen Screen Non Reactive Non Reactive 07/17/2024 9:[address] [facility] Comment:Screening for HIV 1 & 2 antibodies, and P24 antigen is NONREACTIVE. No confirmatory testing is required. Blood Venous blood specimen / Unknown Venipuncture / Unknown 07/17/2024 7:56 AM EST 07/17/2024 8:32 AM EST us Neetu Mayer MD LAB BLOOD ORDERABLES Final Res ult Performing Organization Address [facility] Co de Phone Number [facility] [address] [place] [address] * Hepatitis C Antibody - ED (07/17/2024 7:56 AM EST) Hepatitis C Antibody Negative Negative 07/17/2024 9:[address] [facility] Blood Venous blood specimen / Unknown Venipuncture / Unknown 07/17/2024 7:56 AM EST 07/17/2024 8:32 AM EST us Neetu Mayer MD LAB BLOOD ORDERABLES Final Res ult Performing Organization Address City/[facility] Co de Phone Number [facility] [address] [place] [address] from Last 3 Months or Most Recently Relevant to Health Maintenance Insurance [employer] [facility] MEDICAID Care Teams Position Classification Specialist Relationship Specialty Start Date End Date Kristofer Burleson MD [address] [facility] [address] [place] [address] PCP - General 08/19/22
== END 2025-04-04 23:59 | disposition home or self-care (01) ==
LOC: RAD 09:40
PROVIDERS: PCP Internal Medicine; Visit Provider Internal Medicine
DX: M47.26 Other spondylosis with radiculopathy, lumbar region (principal)
CPT/HCPCS: 72110